=== PATIENT | female | born 1935 | race Caucasian/White ===

== ENCOUNTER 2020-09-02 00:47 | Inpatient (IN) | payer BC, SELFPAY ==
[~2020-09-02] VITALS: Ht 33 cm; Wt 0.5 kg
--- NOTE | 2020-09-02 01:29 | NUR ---
daughter sreedhar called to get update on patient, call back number is [phone]
[2020-09-02 01:58] VITALS: BP_SYST 180
--- NOTE | 2020-09-02 01:58 | NUR ---
Patient triaged and IN AMBULANCE BAY. VSS and patient appears in no acute distress at this time. Accompanied by AUTO DESIGN DETAILER, awaiting available bed, and MD notified of need for MSE.
--- NOTE | 2020-09-02 01:59 | NUR ---
ER Dr. CADET at bedside examining patient.
--- NOTE | 2020-09-02 02:06 | NUR ---
DR. CADET SPEAKING WITH PATIENTS DAUGHTER LYN.
[2020-09-02] MEDS ORDERED: NS 500 ML IV ONE (02:15)
--- NOTE | 2020-09-02 03:43 | NUR ---
LAB WITH PATIENT DRAWING BLOOD FOR LABS.
[2020-09-02 04:17] LABS: BASOPHILS # (AUTO) 0.1 K/uL (0.0-0.2); BASOPHILS % (AUTO) 0.8 % (0.0-2.0); EOSINOPHILS # (AUTO) 0.2 K/uL (0.0-0.4); EOSINOPHILS % (AUTO) 2.8 % (0.0-4.0); HEMATOCRIT 33.4 % (36-48); LYMPHOCYTES # (AUTO) 1.2 K/uL (1.0-5.5); LYMPHOCYTES % (AUTO) 15.5 % (20.5-51.5); MEAN CORPUSCULAR HEMOGLOBIN 29 pg (27-31); MEAN CORPUSCULAR HGB CONC 33 % (32-36); MEAN CORPUSCULAR VOLUME 87 fL (79.0-98.0); MONOCYTES # (AUTO) 0.4 K/uL (0.0-1.0); MONOCYTES % (AUTO) 5.2 % (1.7-9.3); NEUTROPHILS # (AUTO) 6.1 K/uL (1.8-7.7); NEUTROPHILS % (AUTO) 75.7 % (40.0-70.0); PLATELET COUNT (AUTO) 219 K/uL (130-430); RED BLOOD CELL COUNT(AUTO) 3.83 MIL/uL (4.2-6.2); RED CELL DISTRIBUTION WIDTH 14.7 % (9.0-15.0)
[2020-09-02 04:33] LABS: ANION GAP 12 (5-15); CALCIUM 8.7 mg/dL (8.4-11.0); CHLORIDE 109 mmol/L (98-107); CREATININE 6.26 mg/dL (0.55-1.30); GLUCOSE 151 mg/dL (70-99); SODIUM SERUM 142 mmol/L (136-145); UREA NITROGEN, BLOOD 75 mg/dL (8-21)
--- NOTE | 2020-09-02 04:40 | NUR ---
CRITICAL LAB REPORTING - POTASSIUM 6. MD AWARE.
[2020-09-02 04:42] LABS: ALANINE AMINOTRANSFERASE 18 U/L (12-78); ALBUMIN 2.9 g/dL (3.4-4.8); ASPARTATE AMINOTRANSFERASE 14 U/L (10-37); TOTAL BILIRUBIN 0.3 mg/dL (0.0-1.0)
--- NOTE | 2020-09-02 04:47 | NUR ---
PT BIB BLS FROM HOME C/O OF PAIN WITH URINATION X1 WEEK THAT IS WORSENING AND APPEARS CONFUSED. PT C/O OF GENERALIZED WEAKNESS. WHEN SPEAKING WITH DAUGHTER SHE INFORMED STAFF PATIENT HAS NOT RECEIVED DIALYSIS SINCE 08/26/2020. PT WAS DIAGNOSED YESTERDAY WITH UTI AT [facility]. PT RECEIVED ONLY A COUPLE OF DOSES OF ANTIBIOTIC PRESCRIBED FROM [place]. PT HX OF HTN, RENAL DISEASE, DEMENTIA.
--- NOTE | 2020-09-02 04:55 | NUR ---
RECEIVED ADMIT ORDERS FROM DR. POOLE.
--- NOTE | 2020-09-02 04:55 | NUR ---
Patient will be admitted to care of ESEQUIEL. Admitted to M/S unit. Will go to room PENDING. CARE WILL BE CONTINUED IN ER UNTIL BED IS AVAILABLE. Belongings list completed. Complete and up to date summary report printed. SBAR report to be given at bedside with opportunity for questions.
[2020-09-02] MEDS ORDERED: SIMV10TA2 PO (05:03)
[2020-09-02] MEDS ORDERED: GABA-529 PO (05:03)
[2020-09-02] MEDS ORDERED: [UNRECOGNIZED DRUG - CODE] PO (05:03)
[2020-09-02] MEDS ORDERED: DILT120C52 PO (05:04)
[2020-09-02] MEDS ORDERED: WARF-66 PO (05:04)
--- NOTE | 2020-09-02 05:04 | NUR ---
Medication reconciliation completed with information provided by DAUGHTER. Any prior medication reconciliation on file was reviewed and corrected.
--- NOTE | 2020-09-02 05:06 | NUR ---
RECEIVED ORDERS FROM DR. NELSON FOR 60MG KAYEXALATE PO ONCE.
[2020-09-02] MEDS ORDERED: cefTRIAXone 1 GM IVPB PREMIX 50 ML IV SCH (05:15)
[2020-09-02] MEDS ORDERED: ACETAMINOPHEN 325 MG TABLET PO PRN ×2 (05:15→09:00)
[2020-09-02] MEDS ORDERED: SODIUM POLYSTYRENE SULFONATE 15 GM/60 ML UDBTL PO ONE ×2 (05:15)
[2020-09-02 05:38] LABS: INR 1.7 (0.8-1.2); PROTHROMBIN TIME 16.9 SECS (9.5-12.5)
--- NOTE | 2020-09-02 05:39 | NUR ---
Patient's code status is DNR paperwork completed and placed in chart.
[2020-09-02] MEDS ORDERED: WARFARIN SODIUM 2 MG TABLET PO SCH ×2 (09:00→18:00)
[2020-09-02] MEDS ORDERED: ONDANSETRON HCL 4 MG/2 ML VIAL IVP PRN (09:00)
[2020-09-02] MEDS: NORMAL SALINE 5 ML DISP.SYRIN IVF SCH ×3 (09:30→21:32)
--- NOTE | 2020-09-02 09:30 | NUR ---
Pt AV shunt to left upper extremity red, swollen, tender to touch. Pt guards arm, is very sensitive. Sutures in place. Redness around sutures. Pt states she's had it for about a month.
--- NOTE | 2020-09-02 09:36 | NUR ---
ADMISSION NOTE Received patient from ER via gurney. Patient admitted with diagnosis of missed dialysis. Patient is awake, alert, oriented X 4. Patient oriented to hospital room, call light, toileting, pain management and safety-teach back done. Patient informed that Sandhya will be her nurse and that her room number is 111 A. Personal belongings checked and Belongings List documented. Call light within reach.
[2020-09-02 09:42] VITALS: BP_SYST 199
--- NOTE | 2020-09-02 09:49 | NUR ---
Pt brought to room 111-A via EMS [facility]. # 20 gauge angiocath placed to RAC. Use of asceptic technique. Opsite placed over site. Blood return noted. Flushed with 10 cc of normal saline. No evidence of infiltration noted. Patient tolerated well. Pt has Steven to right upper chest, no dressing. Site red with scabs around insertion area. 1 stitch pulled out it was not attached to catheter. Site cleansed with sterile technique, Opsited placed.
[2020-09-02] MEDS ORDERED: GABAPENTIN 100 MG CAPSULE PO ONE (11:30)
[2020-09-02] MEDS ORDERED: DILTIAZEM HCL 120 MG CAP.SR.24H PO ONE (11:30)
[2020-09-02 12:19] VITALS: BP_SYST 191
--- NOTE | 2020-09-02 13:00 | NUR ---
UPDATED CONDITION OF PATIENT WITH DAUGHTER Per Orville Jordan, she is power of research attorney and copy in the chart. Patient has episode of forgetful but able to answer question. Orville Jordan updated the medical condition of the patient, admission data updated. Any YUMIKO or decision needs to make call [phone].
[2020-09-02] MEDS: cefTRIAXone 1 GM IVPB PREMIX 50 ML IV SCH (13:51)
[2020-09-02] MEDS: GABAPENTIN 100 MG CAPSULE PO SCH ×2 (15:55→21:32)
[2020-09-02 16:00] VITALS: BP_SYST 172
--- NOTE | 2020-09-02 16:55 | NUR ---
HEMODIALYSIS STARTED Patient resting in the bed. No acute distress. Skin warm and dry to touch. Hemodialysis started. Safety measure maintained. Call light within reached. Dialysis nurse at bedside. Will continue to monitor.
--- NOTE | 2020-09-02 19:25 | NUR ---
HIGH ALERT NOTE: Called Ania Obrien back at [phone] identified within the medical roster to verify physician authenticity.
[2020-09-02] MEDS ORDERED: HEPARIN SODIUM,PORCINE 5,000 UNITS/ML VIAL IVP ONE (19:30)
--- NOTE | 2020-09-02 19:35 | NUR ---
Opening note Received patient awake, resting in bed, no distress, Non labored breathing on RA. HD in progress and DOMINGO Richter at bedside w/patient. Bed is locked in lowest position, side rails up 3x, bed alarm on and call light w/in reach. Updated board.
[2020-09-02 20:00] VITALS: BP_SYST 113
--- NOTE | 2020-09-02 20:15 | NUR ---
HEMODIALYSIS COMPLETED Report given by Neelamrivet spinner. Patient VS stable, 1000ml out. Procedure tolerated well. Safety measure maintained. Call light within reached. Continue the care by night nurse.
--- NOTE | 2020-09-02 20:20 | NUR ---
hemodialysis complete Neelam RN reports HD complete and 1L out. Patient is stable, no distress.
[2020-09-02] MEDS ORDERED: SIMVASTATIN 10 MG TABLET PO SCH (21:00)
--- NOTE | 2020-09-02 21:35 | NUR ---
meds Due med given and patient took capsule w/water. She is [place] and does not have her hearing aid, slight difficulty explaining med side effect. Her dinner tray is at bedside and she is still eating (I warmed up the entree).
[2020-09-02 22:06] LABS: BASOPHILS # (AUTO) 0.1 K/uL (0.0-0.2); BASOPHILS % (AUTO) 0.6 % (0.0-2.0); EOSINOPHILS # (AUTO) 0.2 K/uL (0.0-0.4); EOSINOPHILS % (AUTO) 1.9 % (0.0-4.0); HEMOGLOBIN 12.1 g/dL (12.0-16.0); LYMPHOCYTES % (AUTO) 9.6 % (20.5-51.5); MEAN CORPUSCULAR HEMOGLOBIN 29 pg (27-31); MEAN CORPUSCULAR HGB CONC 34 % (32-36); MEAN CORPUSCULAR VOLUME 87 fL (79.0-98.0); MONOCYTES # (AUTO) 0.6 K/uL (0.0-1.0); MONOCYTES % (AUTO) 5.3 % (1.7-9.3); NEUTROPHILS # (AUTO) 8.8 K/uL (1.8-7.7); NEUTROPHILS % (AUTO) 82.6 % (40.0-70.0); PLATELET COUNT (AUTO) 212 K/uL (130-430); RED BLOOD CELL COUNT(AUTO) 4.13 MIL/uL (4.2-6.2); RED CELL DISTRIBUTION WIDTH 14.6 % (9.0-15.0); WHITE BLOOD COUNT (AUTO) 10.7 K/uL (4.8-10.8)
--- NOTE | 2020-09-02 22:27 | NUR ---
Dr. Mills Informed Dr. Mills patient is A-fib and presently uncontrolled, sustaining in 130's. She ordered Cardizem 10mg IVP one time, TORB.
[2020-09-02 22:29] LABS: ALANINE AMINOTRANSFERASE 18 U/L (12-78); ALBUMIN 3.1 g/dL (3.4-4.8); ANION GAP 14 (5-15); ASPARTATE AMINOTRANSFERASE 14 U/L (10-37); CHLORIDE 99 mmol/L (98-107); CREATININE 2.91 mg/dL (0.55-1.30); GLUCOSE 173 mg/dL (70-99); SODIUM SERUM 140 mmol/L (136-145); TOTAL BILIRUBIN 0.4 mg/dL (0.0-1.0); UREA NITROGEN, BLOOD 27 mg/dL (8-21)
[2020-09-02] MEDS ORDERED: DILTIAZEM HCL 25 MG/5 ML VIAL IVP ONE ×2 (22:30→22:45)
[2020-09-02 22:43] LABS: INR 1.4 (0.8-1.2); PROTHROMBIN TIME 14.6 SECS (9.5-12.5)
--- NOTE | 2020-09-02 23:00 | NUR ---
cardizem IVP cardizem IVP given, HR 143, will continue to monitor.
[2020-09-03 00:10] VITALS: BP_SYST 104
--- NOTE | 2020-09-03 01:44 | NUR ---
HR continues to be increased Informed Dr. Mills patient's HR decreased to 115, though did not stay, it continues to increase to 130's. She ordered Cardizem 10mg IVP one time, [place]. Addendum: 09/03/20 at 0149 by Marleny Cummings RN She also ordered EKG in am.
[2020-09-03] MEDS ORDERED: DILTIAZEM HCL 25 MG/5 ML VIAL IVP ONE ×2 (01:45→02:45)
--- NOTE | 2020-09-03 02:51 | NUR ---
cardizem IVP cardizem 10 mg IVP given as ordered; B/P 123/74 HR 124, will continue to monitor. She had bowel movement; provided w/ pedro- care and clean pad/linen. Safety precautions in place and call light w/in reach.
--- NOTE | 2020-09-03 06:15 | NUR ---
CONSULT REASON FOR CONSULT: MISSED DIALYSIS CONSULTING PHYSICIAN: DR. NELSON PATIENT HAD DIALYSIS ON 09/02/2020
--- NOTE | 2020-09-03 06:30 | NUR ---
converted to Sinus rhythm fire sprinkler service technician reports patient converted to sinus rhythm, and HR is 85.
[2020-09-03] MEDS: NORMAL SALINE 5 ML DISP.SYRIN IVF SCH ×2 (06:50→12:23)
[2020-09-03] MEDS: GABAPENTIN 100 MG CAPSULE PO SCH (08:42)
[2020-09-03 08:45] VITALS: BP_SYST 134
--- NOTE | 2020-09-03 08:45 | NUR ---
Mobility Ambulate with physical therapy using FWW with generalized weakness , left arm with previous surgery with precaution back and port from bed to door tolerates well with out dizziness, fall risk.
[2020-09-03 08:51] LABS: INR 1.5 (0.8-1.2); PROTHROMBIN TIME 14.8 SECS (9.5-12.5)
[2020-09-03] MEDS ORDERED: DILTIAZEM HCL 120 MG CAP.SR.24H PO SCH (09:00)
[2020-09-03 09:21] LABS: BASOPHILS # (AUTO) 0.1 K/uL (0.0-0.2); EOSINOPHILS # (AUTO) 0.2 K/uL (0.0-0.4); EOSINOPHILS % (AUTO) 2.8 % (0.0-4.0); HEMOGLOBIN 10.7 g/dL (12.0-16.0); LYMPHOCYTES % (AUTO) 13.1 % (20.5-51.5); MEAN CORPUSCULAR HEMOGLOBIN 29 pg (27-31); MEAN CORPUSCULAR HGB CONC 33 % (32-36); MEAN CORPUSCULAR VOLUME 87 fL (79.0-98.0); MONOCYTES # (AUTO) 0.5 K/uL (0.0-1.0); MONOCYTES % (AUTO) 5.9 % (1.7-9.3); NEUTROPHILS # (AUTO) 5.9 K/uL (1.8-7.7); NEUTROPHILS % (AUTO) 77.2 % (40.0-70.0); PLATELET COUNT (AUTO) 195 K/uL (130-430); RED BLOOD CELL COUNT(AUTO) 3.69 MIL/uL (4.2-6.2); RED CELL DISTRIBUTION WIDTH 14.6 % (9.0-15.0)
[2020-09-03 09:24] LABS: WHITE BLOOD COUNT (AUTO) 7.7 K/uL (4.8-10.8)
[2020-09-03 09:38] LABS: ALANINE AMINOTRANSFERASE 21 U/L (12-78); ALBUMIN 2.8 g/dL (3.4-4.8); ASPARTATE AMINOTRANSFERASE 19 U/L (10-37); CALCIUM 8.4 mg/dL (8.4-11.0); CREATININE 3.73 mg/dL (0.55-1.30); GLUCOSE 182 mg/dL (70-99); POTASSIUM 3.9 mmol/L (3.5-5.1); SODIUM SERUM 140 mmol/L (136-145); TOTAL BILIRUBIN 0.4 mg/dL (0.0-1.0); UREA NITROGEN, BLOOD 32 mg/dL (8-21)
[2020-09-03 10:02] LABS: ANION GAP 16 (5-15); CHLORIDE 100 mmol/L (98-107)
[2020-09-03 11:09] VITALS: BP_SYST 135
--- NOTE | 2020-09-03 12:01 | NUR ---
Nutrition Update Felix Scale 17 noted. Pt admitted for missed dialysis. Diet: cardiac BMI: 4.2 kg/m2 (likely inaccurate -- ht noted as 13 in and wt noted as 454 g) RD to follow per nutrition care standards.
[2020-09-03] MEDS: cefTRIAXone 1 GM IVPB PREMIX 50 ML IV SCH (12:23)
[2020-09-03 13:23] VITALS: BP_SYST 127
--- NOTE | 2020-09-03 13:38 | NUR ---
Po Jacob for right shoulder xray result. Addendum: 09/03/20 at 1351 by Radha Ortiz RN OK to discharge with maren jiang and logan christian
[2020-09-03 14:32] VITALS: BP_SYST 127
--- NOTE | 2020-09-03 14:45 | NUR ---
D/C Patient Patient given medication reconciliation form and D/C instructions. Exit Care provided. Patient verbalized understanding. MD discussed with patient the results and treatment provided. Ambulatory with assist , sling to right arm for discharge to home. Patient in stable condition, ID band removed. IV catheter removed, intact and dressing applied, no active bleeding. Patient educated safety, fall precaution, hemodialysis as scheduled , All belongings sent with patient.
[2020-09-03] MEDS ORDERED: WARFARIN SODIUM 3 MG TABLET PO SCH (18:00)
[2020-09-03] MEDS ORDERED: RAMIPRIL 2.5 MG CAPSULE (ALTACE) PO SCH (21:00)
== END 2020-09-03 14:45 | disposition home or self-care (01) | DRG 640 ==
LOC: SED 00:47 → SMU 04:53 → STU 09:32 → SMU 09:35 → STU 10:14
PROVIDERS: ADMIT Internal Medicine Hospice and Palliative Medicine; ATTEND Internal Medicine Hospice and Palliative Medicine
PROC: 5A1D70Z Performance of Urinary Filtration, Intermittent, Less than 6 Hours Per Day (ICD-10-PCS; principal; 2020-09-02)
DX: E87.5 Hyperkalemia (principal); N18.6 End stage renal disease; I12.0 Hypertensive chronic kidney disease with stage 5 chronic kidney disease or end stage renal disease; F03.90 Unspecified dementia, unspecified severity, without behavioral disturbance, psychotic disturbance, mood disturbance, and anxiety; Z79.899 Other long term (current) drug therapy; Z79.01 Long term (current) use of anticoagulants; Z20.828 Contact with and (suspected) exposure to other viral communicable diseases
CPT/HCPCS: 36415; 80053; 84484; 85025; 85610-TC; 87081; 93005; 97116-GP; 97530-GP; 99291; G0378; J0696; J1644; J3490; J7030